=== PATIENT | female | born 2000 | race Caucasian/White ===

== ENCOUNTER 2024-07-09 08:58 | Emergency (ER) | payer OTHER, SELFPAY ==
[2024-07-09 09:14] VITALS: BP 117/74
[2024-07-09 11:07] VITALS: BP 96/63
[2024-07-09 11:22] LABS: HCG, Urine Qualitative Screen Negative
--- NOTE | 2024-07-09 11:27 | ED.GENMED ---
History of Present Illness
General
Chief Complaint: Dizziness
Time Seen by Provider: 07/09/24 10:58
History of Present Illness
History of Present Illness:
Patient presents to the emergency department with pelvic pain and dizziness. Symptoms started suddenly this morning. She states that she suddenly got severe midline pelvic pain. This was associated with lightheadedness and ringing in her years.
She had 1 more episode of this which self resolved. She currently is feeling better. She has a history of ovarian cysts in the past. She is not due to have her period for the another 12 days. Denies urinary symptoms. Denies vaginal discharge.
Denies fevers or chills.
Phy Exam
Physical Exam
Physical Exam:
GENERAL APPEARANCE: NAD, well developed/ well nourished
EYES lids/conjunctiva normal
EARS/NOSE/THROAT Mucous membranes moist, uvula midline without oral pharyngeal erythema, exudate or swelling
HEAD/NECK normocephalic atraumatic, neck is supple.
RESPIRATORY respiratory effort normal, speaks in full sentences, no accessory muscle use. Lungs clear to auscultation without rhonchi, wheezes, rales
CARDIAC Regular rate and rhythm, no edema.
ABDOMINAL Soft, ND/NT. No pulsatile masses on exam, rebound tenderness, Holden sign or pain over Mcburney's point, mild suprapubic tenderness
MUSCLES/EXTREMITIES No abnormal range of motion, no swelling.
SKIN Warm, pink and dry. No rashes
NEUROLOGICAL Speech is clear and appropriate. Normal level of consciousness. 5/5 strength in all extremities.
PSYCH Normal mood and affect. Judgement/competence is appropriate
Course
Orders/Labs/Results
Orders:
Orders
07/09/24 11:07
Electrocardiogram (*1) Urgent
Reason for Study: Vertigo / Dizzy
07/09/24 11:08
EKG- Treatment ONCE
Test Result ONCE
07/09/24 11:10
HCG, Urine Qualitative Screen Urgent
Date Specimen was Collected: 07/09/24
Time Specimen was Collected: 11:08
Urinalysis Reflex To Culture Urgent
Date Specimen was Collected: 07/09/24
Time Specimen was Collected: 11:08
Comment: ADD ON
Urine Microscopic Reflex Cult Urgent
Urine Culture Urgent
SHARON Source: U
Specimen Description:
Date Specimen was Collected: 07/09/24
Time Specimen was Collected: 11:08
07/09/24 11:25
Add On- LAB Urgent
Tests Added?: urinalysis reflex to culture
07/09/24 11:26
US Pelvis W Transvag Combined Urgent
Comment:
Reason For Exam: pelvic pain, hx of cyst
07/09/24 11:41
Complete Blood Count/With Diff Urgent
Comprehensive Metabolic Panel Urgent
07/09/24 12:21
0.9% Sodium Chloride 1000 ml [Nss] 1,000 ml IV BOLUS
Abnormal Lab Results
07/09/24 07/09/24
11:10 11:41
Absolute Lymphs (auto) 1.0 L 10^3/uL
(1.2-3.4)
Absolute Monos (auto) 1.1 H 10^3/uL
(0.1-0.6)
Lymphocytes % 12.1 L %
(20.5-51.1)
Monocytes % 13.4 H %
(1.7-9.3)
Carbon Dioxide 21 L mmol/L
(22-30)
Creatinine 0.5 L mg/dL
(0.6-1.0)
AST 56 H U/L
(14-36)
ALT 154 H U/L
(0-35)
Urine Bacteria (Reflex) Moderate A
(Negative)
Urine Albumin (Reflex) 1+ A
(Neg - Trace)
07/09/24 11:41
07/09/24 11:41
Vital Signs
Initial and Last Documented VS:
Initial Vital Signs
Temp Pulse Resp BP Pulse Ox
98.0 F 83 16 117/74 98
07/09/24 09:14 07/09/24 09:14 07/09/24 09:14 07/09/24 09:14 07/09/24 09:14
Last Documented Vital Signs
Temp Pulse Resp BP Pulse Ox
98.0 F 95 28 100/65 100
07/09/24 09:14 07/09/24 14:00 07/09/24 14:00 07/09/24 13:40 07/09/24 14:00
*Critical Care Note
Total Time (30-74mins, 75-104mins- exclusive of procedures): Not Applicable
ED Attending Note
ED Attending Note
ED Attending Note:
Patient presents with episodic severe pelvic pain. Differential includes ectopic , , ovarian torsion, hemorrhagic cyst. Less likely pelvic inflammatory disease given lack of infectious symptoms or discharge, as well as
intermittent symptoms. Do not spec intra-abdominal emergency given normal tenderness plan to check basic labs given her episodes of dizziness as well as pelvic ultrasound.
Symptoms have resolved at this time. Patient's ultrasound showing cyst in the left ovary. Recommending outpatient follow-up ultrasound. Given patient is midcycle with temporary severe pain, suspect this could be mittelschmerz. educated patient on
outpatient follow-up.
-
Portions of this chart may have been created with voice recognition software.� Occasional wrong word or��sound alike� substitutions may have occurred due to the inherent limitations of voice recognition software.
Discharge Plan
Departure
Patient Disposition: Home (Routine Discharge)
Date of Disposition: 07/09/24
Time of Disposition: 13:43
Patient with high blood pressure during this ER visit?: No
Discharge Problem:
Pelvic pain
Instructions: Ovarian cysts, Painful Ovulation
Referrals:
NONE,* [Family Provider] -
Activity Restrictions/Additional Instructions:
Follow-up with your industrial gas fitter for repeat ultrasound in the next 6 to 12 months. Return to the emergency department with new or worsening symptoms
Interventions
Interventions:
*Risk Screen - Suicide Last Done: 07/09/24 09:14
*General Assessment Last Done: 07/09/24 11:08
*Neglect/Abuse Screening Last Done: 07/09/24 09:14
ED- Fall Risk Assessment Last Done: 07/09/24 11:13
*ED COVID-19 Vaccine History Last Done: 07/09/24 11:08
*Nursing Disposition Last Done: 07/09/24 14:12
ED- Neurological Assessment Last Done: 07/09/24 11:13
ED- Cardiac Assessment Last Done: 07/09/24 14:12
ED Swallowing Screen Last Done: 07/09/24 11:13
Discharge Date and Time
Discharge Date/Time: 07/09/24 14:15
Print Language: [id number]
[2024-07-09 11:51] LABS: Urine Albumin 1+ (Neg - Trace); Urine Bilirubin Negative (Negative); Urine Character Clear (Clear); Urine Color Yellow; Urine Glucose Negative (Negative); Urine Ketone Negative (Negative); Urine Leukocyte Negative (Negative); Urine Nitrite Negative (Negative); Urine Occult Blood Negative (Negative); Urine Specific Gravity 1.005 (<1.030); Urine Urobilinogen Negative (Neg - 1+)
[2024-07-09 11:54] LABS: % Basophils 0.2 % (0-2); % Eosinophils 1.4 % (0-6); % Immature Granulocytes 0.2 % (0-0.5); % Lymphocytes 12.1 % (20.5-51.1); % Monocytes 13.4 % (1.7-9.3); % Neutrophils 72.7 % (42.2-75.2); Absolute Eosinophils 0.1 10^3/uL (0-0.7); Absolute Monocytes 1.1 10^3/uL (0.1-0.6); Absolute Neutrophils 6.1 10^3/uL (1.4-6.5); Hematocrit 38.4 % (37.0-47.0); Hemoglobin 13.2 g/dL (12.0-16.0); Mean Corp Hgb Conc. 34.4 g/dL (33.0-37.0); Mean Corpuscular Hgb 29.6 pg (27.0-31.0); Mean Corpuscular Volume 86.1 fL (81.0-99.0); Mean Platelet Volume 9.5 fL (7.4-10.4); Nucleated Red Blood Cells % 0 %; Platelet Count 214 10^3/uL (130-400); Red Blood Cell Count 4.46 10^6/uL (4.20-5.40); Red Cell Dist. Width 12.8 % (11.5-14.5); White Blood Cell Count 8.4 10^3/uL (4.8-10.8)
[2024-07-09 12:09] LABS: ALT (SGPT) 154 U/L (0-35); AST (SGOT) 56 U/L (14-36); Albumin 4.7 g/dl (3.5-5.0); Alkaline Phosphatase 63 U/L (38-126); Blood Urea Nitrogen 11 mg/dl (7-17); Calcium 9.9 mg/dl (8.4-10.2); Carbon Dioxide 21 mmol/L (22-30); Chloride 106 mmol/L (98-107); Glucose 76 mg/dl (70-99); Potassium 4.3 mmol/L (3.5-5.1); Sodium 138 mmol/L (135-145); Total Bilirubin 0.5 mg/dl (0.2-1.3); Total Protein 7.2 g/dl (6.3-8.2); eGFR > 60.00
[2024-07-09 12:52] LABS: Urine Bacteria Moderate (Negative); Urine Red Blood Cell None Seen /HPF (0-2); Urine Squamous Cell >30 /LPF (Few); Urine White Cell 0-2 /HPF (0-5)
[2024-07-09 13:06] VITALS: BP 117/56
[2024-07-09 13:40] VITALS: BP 100/65
== END 2024-07-09 14:15 | disposition home or self-care (01) ==
LOC: EMR 08:58
PROVIDERS: EMERGENCY PHYSICIAN Emergency Medicine
DX: R10.2 Pelvic and perineal pain (principal); R42 Dizziness and giddiness
CPT/HCPCS: 99285; 76830; 76856; 80053; 81003; 81015; 81025; 85025; 87086; 93005

== ENCOUNTER 2024-08-21 11:11 | Emergency (ER) | payer OTHER, SELFPAY ==
[2024-08-21 11:21] VITALS: BP 105/68
[2024-08-21 11:56] LABS: % Basophils 0.5 % (0-2); % Eosinophils 1.6 % (0-6); % Immature Granulocytes 0.2 % (0-0.5); % Lymphocytes 23.9 % (20.5-51.1); % Monocytes 13.1 % (1.7-9.3); % Neutrophils 60.7 % (42.2-75.2); Absolute Eosinophils 0.1 10^3/uL (0-0.7); Absolute Lymphocytes 1.5 10^3/uL (1.2-3.4); Absolute Monocytes 0.8 10^3/uL (0.1-0.6); Absolute Neutrophils 3.7 10^3/uL (1.4-6.5); Hematocrit 36.9 % (37.0-47.0); Hemoglobin 12.8 g/dL (12.0-16.0); Mean Corp Hgb Conc. 34.7 g/dL (33.0-37.0); Mean Corpuscular Hgb 29.8 pg (27.0-31.0); Mean Platelet Volume 9.4 fL (7.4-10.4); Nucleated Red Blood Cells % 0 %; Platelet Count 191 10^3/uL (130-400); Red Blood Cell Count 4.29 10^6/uL (4.20-5.40); Red Cell Dist. Width 12.6 % (11.5-14.5); White Blood Cell Count 6.2 10^3/uL (4.8-10.8)
[2024-08-21 12:15] LABS: INR 0.99; PT 13.4 Sec (11.4-14.6)
[2024-08-21 12:16] LABS: APTT 31.1 Sec (23.4-35.0)
[2024-08-21 12:18] LABS: ALT (SGPT) 26 U/L (0-35); AST (SGOT) 24 U/L (14-36); Albumin 4.6 g/dl (3.5-5.0); Alkaline Phosphatase 50 U/L (38-126); Blood Urea Nitrogen 15 mg/dl (7-17); Calcium 9.4 mg/dl (8.4-10.2); Carbon Dioxide 23 mmol/L (22-30); Chloride 107 mmol/L (98-107); Glucose 89 mg/dl (70-99); Potassium 4.6 mmol/L (3.5-5.1); Sodium 138 mmol/L (135-145); Total Bilirubin 0.3 mg/dl (0.2-1.3); Total Protein 6.9 g/dl (6.3-8.2); eGFR > 60.00
[2024-08-21 12:30] LABS: HCG, Serum Qualitative Screen Negative
[2024-08-21 12:45] LABS: Urine Albumin Negative (Neg - Trace); Urine Bilirubin Negative (Negative); Urine Character Clear (Clear); Urine Color Yellow; Urine Glucose Negative (Negative); Urine Ketone Negative (Negative); Urine Leukocyte Negative (Negative); Urine Nitrite Negative (Negative); Urine Occult Blood Negative (Negative); Urine Specific Gravity 1.015 (<1.030); Urine Urobilinogen Negative (Neg - 1+)
[2024-08-21 14:00] VITALS: BP 98/57
--- NOTE | 2024-08-21 14:22 | ED.GENMED ---
History of Present Illness
General
Chief Complaint: Abdominal Symptoms
Source: patient
Exam Limitations: none
Time Seen by Provider: 08/21/24 13:59
Nursing documentation reviewed up to this point in time: agreed with
History of Present Illness
History of Present Illness:
pt is a 24 y/o F with h/o ovarian cysts
on welbutrin
here with rectal bleeding x 1 episode this am
pt says that 5 days ago she had nausea, abd cramping and diarrhea
had nonbloody diarrhea x 3 episodes
later that night had vomiting x 2
felt nauesated the following day
had taken pepto x 1 dose
pt says she had some mild nausea but no vomiting and was able toe eat
yesterday felt better and more like herself
then this am she had firmer small stool and subsequently noticed blood hwen she wiped
she also noticed blood in the toilet bowl
is due for her period but hasn't gotten it yet
she feels some burning in her anus with wiping
no h/o hemorrhoids, colon cancer in the family
pt has not had any recent travle, abx
the diarrhe cynthia had previously was not bloody
she has not had any other episodes today
was eating cupcake, cheezits and saúl alondra in the treatment room
Past History
Past History
ED Past Medical History: Psychiatric and Other (ovarian cyst)
Social History
Tobacco: Non-smoker
Alcohol: None
Drug: None
Personal: Single
Review of Systems
Review of Systems
Allergies reviewed?: Yes
All Other Systems: Not applicable
Phy Exam
Physical Exam
Physical Exam:
GENERAL: Alert , in no apparent distress
ENT: o/p clr, mmm.
CARDIAC: Regular rate and rhythm .
LUNGS: Clear breath sounds bilaterally, no acute respiratory distress, no wheezes/rales/rhonchi
ABDOMEN: Soft, without focal tenderness, no r/g, no cvat, normal bowel sounds
small anal fissure at 7 oclock,
very trace pink in the vault heme POS
no hemorrhoids externally
may have nontender hemorrhoid internally
no sigifnciant tenderness
NEUROLOGICAL: Alert and oriented, no focal neuro deficits
SKIN: Warm and dry, skin intact.
MUSCULOSKELETAL: No edema, well perfused. neg chris's sign
PSYCH: Normal and appropriate interaction.
Course
Orders/Labs/Results
Orders:
Orders
08/21/24 11:24
Test Result ONCE
08/21/24 11:25
EKG [Electrocardiogram (*1)] Urgent
Reason for Study: Abdominal Pain
EKG- Treatment ONCE
08/21/24 11:44
Type+Screen Urgent
Complete Blood Count/With Diff Urgent
Comprehensive Metabolic Panel Urgent
HCG, Serum Qualitative Screen Urgent
Comment: Notify provider if positive test present
PTT Urgent
Prothrombin Time Urgent
Urinalysis Reflex To Culture Urgent
Date Specimen was Collected: 08/21/24
Time Specimen was Collected: 11:24
08/21/24 14:18
Obstruct Series W/PA Chest [CR Obstruct Series W/pa Chest] Urgent
Comment:
Reason For Exam: constipation, rectal bleeding
Abnormal Lab Results
08/21/24
11:44
Hct 36.9 L %
(37.0-47.0)
Absolute Monos (auto) 0.8 H 10^3/uL
(0.1-0.6)
Monocytes % 13.1 H %
(1.7-9.3)
Creatinine 0.5 L mg/dL
(0.6-1.0)
08/21/24 11:44
08/21/24 11:44
Vital Signs
Initial and Last Documented VS:
Initial Vital Signs
Temp Pulse Resp BP Pulse Ox
36.6 C 81 16 105/68 100
08/21/24 11:21 08/21/24 11:21 08/21/24 11:21 08/21/24 11:21 08/21/24 11:21
Last Documented Vital Signs
Temp Pulse Resp BP Pulse Ox
36.6 C 82 18 98/57 97
08/21/24 11:21 08/21/24 14:00 08/21/24 14:00 08/21/24 14:00 08/21/24 14:00
MDM/Problems Addressed
Differential Diagnosis Includes:
constipation, hemorrhoid, infectious stool, vaginal bleeding
MDM/Problems Addressed:
24 y/o F with h/o n/v/d ilness 5 days ago, improving
then had firmer stool today and rectal pain with wiping and noticed BRBPR
it resolved
only 1 episode but was coloring bowl
no significnat pain, fever
on exam pt is eating snacks
stable vitals
abd soft, nontender
small anal fissure, unlikely to be source of bleeding
trace pink in the vault
may have internal hemorrhoid, probably most likely cause
givne normal wbc, stable hg, bun normal, will hold on imaging/stool studies offered but pt didn't have to go
will check xr to eval for ocnstipation
then likely d/c with suppositories and metamucil
*Critical Care Note
Total Time (30-74mins, 75-104mins- exclusive of procedures): Not Applicable
ED Attending Note
-
Portions of this chart may have been created with voice recognition software.� Occasional wrong word or��sound alike� substitutions may have occurred due to the inherent limitations of voice recognition software.
Discharge Plan
Departure
Patient Disposition: Home (Routine Discharge)
Date of Disposition: 08/21/24
Time of Disposition: 14:58
Patient with high blood pressure during this ER visit?: No
Condition: Fair
Covid-19: Not Applicable
Discharge Problem:
Rectal bleed, Acute anal fissure
Instructions: Anal Fissure (DC), Bloody Stools, Adult ED
Prescriptions:
New
Preparation H (pe) 0.25 % suppository
1 supp CO DAILY PRN (Reason: hemorrhoids) Qty: 12 0RF
Metamucil 3.4 gram/5.4 gram powder
1 tbsp PO DAILY Qty: 660 0RF
Referrals:
Tyree Merlos MD [Active] - Follow up in 1 week ([facility])
NONE,* [Family Provider] -
Activity Restrictions/Additional Instructions:
YOUR XRAY SHOWS A MODERATE AMOUNT OF GAS WELL STOOL IN YOUR COLON
YOUR BLOOD WORK WAS REASSURING
THE BLEEDING COULD HAVE COME FROM A HEMORRHOID
START TAKING METAMUCIL ONCE A DAY (STOOL SOFTENER)
USE PREPARATION H SUPPOSITORIES ONCE A DAY FOR 3-5 DAYS IN A ROW
ON THE OUTSIDE OF YOUR ANUS YOU CAN APPLY VASOLINE OR SOME PREPARATION H TOPICAL CREAM TO HELP WITH THE SMALL SUPERFICIAL TEAR IN THE SKIN
SOAK IN THE TUB 10 MINUTES A FEW TIMES A DAY TO HELP THIS HEAL
YOU SHOULD CALL FOR APPT WITH [facility] OR GI TO HAVE COLONOSCOPY
RETURN FOR: SEVERE BLEEDING EPISODES, LIGHTHEADEDNESS, FEVER, PASSING OUT, SEVERE PAIN OR NAY CONCERNS.
Interventions
Interventions:
*Risk Screen - Suicide Last Done: 08/21/24 11:21
*General Assessment Last Done: 08/21/24 13:32
*Neglect/Abuse Screening Last Done: 08/21/24 11:21
*ED- Fall Risk Assessment Last Done: 08/21/24 13:32
*Nursing Disposition Last Done: 08/21/24 15:05
HO-Lqwixb-Mwjrqgvtbc Assessment Last Done: 08/21/24 13:32
Discharge Date and Time
Discharge Date/Time: 08/21/24 15:05
Print Language: [email or web address]
== END 2024-08-21 15:05 | disposition home or self-care (01) ==
LOC: EMR 11:11
PROVIDERS: Emergency Medicine; EMERGENCY PHYSICIAN Emergency Medicine
DX: K60.0 Acute anal fissure (principal); K62.5 Hemorrhage of anus and rectum
CPT/HCPCS: 99285; 74022; 80053; 81003; 84703; 85025; 85610; 85730; 86850; 86900; 86901; 93005